=== PATIENT | female | born 1955 | race Caucasian/White ===

== ENCOUNTER → 2024-11-30 | Outpatient (CLI) | payer MEDICARE ==
--- NOTE | 2024-11-30 13:41 | XR ---
EXAMINATION TYPE: XR chest 2V DATE OF EXAM: 11/30/2024 1:31 PM COMPARISON: None. CLINICAL INDICATION: Female, 69 years old with history of Z01.818 PRE OP, TECHNIQUE: XR chest 2V view(s) obtained. FINDINGS: The heart size is normal. The pulmonary vasculature is normal. The lungs are clear. IMPRESSION: 1. No acute pulmonary process. [facility], , 11/30/2024 1:39 PM
[2024-11-30 13:45] LABS: INR 0.9 (<1.2); Partial Thromboplastin Time 23.8 sec (22.0-30.0); Prothrombin Time 9.8 sec (10.0-12.5)
[2024-11-30 15:41] LABS: Basophils # (A) 0.05 X 10*3/uL (0.00-0.10); Basophils % (A) 0.5 %; HCT 41.5 % (37.2-46.3); HGB 13.3 g/dL (12.0-15.0); Lymphocytes # (A) 2.81 X 10*3/uL (0.90-5.00); Lymphocytes % (A) 28.5 %; MCV 90.6 FL (80.0-97.0); Mean Platelet Volume 12.2 FL (9.5-12.2); Monocytes # (A) 0.66 X 10*3/uL (0.20-1.00); Monocytes % (A) 6.7 %; NRBC Per 100 WBC 0 X 10*3/uL (0.00-0.01); Neutrophils # (A) 6.19 X 10*3/uL (1.80-7.70); Neutrophils % (A) 62.8 %; Platelet Count 280 X 10*3/uL (140-440); RBC 4.58 X 10*6/uL (4.10-5.20); RDW 13.2 % (11.5-14.5); WBC 9.86 X 10*3/uL (4.50-10.00)
[2024-11-30 15:50] LABS: BUN/Creat Ratio 13.89 Ratio (12.00-20.00); Blood Urea Nitrogen 12.5 mg/dL (9.0-27.0); Chloride 102 mmol/L (96-109); Glucose 124 mg/dL (70-110); Potassium 4.6 mmol/L (3.5-5.5); Sodium 138 mmol/L (135-145)
[2024-11-30 15:51] LABS: Appearance,Urine Clear (Clear); Bilirubin,Urine Negative (Negative); Blood,Urine Trace (Negative); Calcium 9.3 mg/dL (8.7-10.3); Carbon Dioxide 24.1 mmol/L (21.6-31.8); Color,Urine Yellow (Yellow); Ketones,Urine Negative (Negative); Nitrite,Urine Negative (Negative); PH, Urine 6.5; Specific Gravity,Urine 1.011 (1.001-1.030)
[2024-11-30 15:58] LABS: Bacteria,Urine 3+ (None Seen)
== END | disposition home or self-care (01) ==
LOC: LABPAT 12:27
PROVIDERS: ATTEND Orthopaedic Surgery Orthopaedic Surgery of the Spine
DX: Z01.818 Encounter for other preprocedural examination (principal); M48.00 Spinal stenosis, site unspecified; E11.9 Type 2 diabetes mellitus without complications; M51.9 Unspecified thoracic, thoracolumbar and lumbosacral intervertebral disc disorder; Z22.322 Carrier or suspected carrier of Methicillin resistant Staphylococcus aureus
CPT/HCPCS: 71046; 80048; 81001; 83036; 85025; 85610; 85730; 86850; 86900; 86901; 87070

== ENCOUNTER 2024-12-05 06:22 | Day surgery (SDC) | payer MEDICARE ==
[2024-11-29 09:28] VITALS: BMI 35.4
[2024-12-05] MEDS: IV FLUID CONTINUATION 1,000 ML IV ONE (06:45)
[2024-12-05] MEDS ORDERED: MIDAZOLAM 2 MG/2 ML VIAL IV PRN (07:00)
[2024-12-05 07:22] LABS: Glucose,Whole Blood 134 mg/dL (70-110)
[2024-12-05] MEDS: DEXAMETHASONE SOD PHOSPHATE 4 MG/ML 1 ML VIAL IV ONE (07:25)
[2024-12-05] MEDS: ONDANSETRON 4 MG/2 ML VIAL IVP ONE (07:25)
[2024-12-05] MEDS: ceFAZolin 1,000 MG in SODIUM CHLORIDE 0.9% IRRIGATIO 1,000 ML IRRIGATION PRN (07:30)
[2024-12-05] MEDS: LIDOCAINE 0.5%-EPI 1:200,000 50 ML VIAL SQ ONE ×2 (07:48→07:56)
[2024-12-05] MEDS: BUPIVACAINE (PF) 0.5% 30 ML VIAL SQ ONE ×2 (07:49→07:56)
[2024-12-05] MEDS: methylPREDNISolone ACETATE 80 MG/ML 1 ML VIAL INJ ONE ×2 (07:49→08:34)
[2024-12-05] MEDS: THROMBIN (BOVINE) 5,000 UNIT VIAL TOPICAL ONE (07:56)
[2024-12-05] MEDS: LACTATED RINGERS 1,000 ML IV ONE (08:38)
[2024-12-05] MEDS ORDERED: HYDROmorphone 0.5 MG/0.5 ML SYRINGE IVP PRN (09:02)
[2024-12-05] MEDS ORDERED: BENZOCAINE/MENTHOL LOZENG 1 EACH LOZENGE MUCOUS MEM PRN (09:02)
[2024-12-05] MEDS ORDERED: ONDANSETRON 4 MG/2 ML VIAL IVP PRN (09:02)
[2024-12-05] MEDS ORDERED: HYDROmorphone 1 MG/ML 1 ML SYRINGE IVP PRN (09:02)
--- NOTE | 2024-12-05 09:12 | P.OP ---
Date of Procedure: 12/05/24 Preoperative Diagnosis: Herniated nucleus pulposus L5-S1, right lower extremity radiculopathy, stenosis L5-S1, degenerative disc disease Anesthesia: GETA Pathology: none sent Condition: stable Disposition: PACU Description of Procedure: BRIEF OPERATIVE NOTE Preoperative Diagnosis:Herniated nucleus pulposus L5-S1, right lower extremity radiculopathy, stenosis L5-S1, degenerative disc disease Postoperative Diagnosis:Herniated nucleus pulposus L5-S1, right lower extremity radiculopathy, stenosis L5-S1, degenerative disc disease Procedure: Laminectomy and decompression L5-S1 Discectomy for decompression L5-S1 Use of fluoroscopic guidance Surgeon: Dr. Olivas Sawmill Equipment Operator: Noah PADRON who is present throughout the entire the case persistence during positioning, dissection, exposure, visualization, and all crucial elements of the case as well as closure. Anesthesia: General anesthesia Estimated blood loss: Approximately 20 cc Complications: None apparent Components implanted: None Disposition: To recovery room in good stable condition. OPERATIVE INDICATIONS The patient has been having issues in their lower back and lower extremities. She was having severe pain at her right lower extremity and difficulty with any attempts of gaining comfort at her right leg. She had severe radicular symptoms which correlated with with an S1 distribution and her imaging showed a disc herniation with extruded fragment causing stenosis at L5-S1 which correlated well with her low back lower extremity symptoms. Her primary issues were that into her lower extremity and she was having significant debility with this. She had been through extensive conservative treatment including medications therapy and interventional pain management. Stenosis and impingement of the traversing nerve root which correlated well with her lower extremity symptoms. Her primary issues were that into her lower extremity. She has been through extensive conservative management including medications physical therapy and interventional pain management but despite this she was not having any significant or prolonged relief. The patient has been through conservative treatment. We discussed various treatment options including surgery, and the patient wishes to proceed with surgery We discussed the risk, patient's alternatives and benefits of surgery including but not limited to, risk of bleeding risk of infection, risk of need for further surgery, risk of decreased, loss of motion, loss of function, nerve damage, paralysis, heart attack, blindness and . OPERATIVE SUMMARY After discussing all the risks, patient alternatives and benefits at length, the patient elected to proceed with surgical intervention, signed informed consent, and presented for their procedure. The patient was seen and examined in the preoperative holding area and the surgical site was marked. The patient was given antibiotics and brought to the operating room. The patient was sedated and intubated by anesthesia in standard fashion. The patient was positioned on to the operating room table in a prone position on the appropriate frame which was well-padded and well molded. We were careful to pad any bony prominences and pressure points. We were careful to maintain the patient's cervical spine and good neutral alignment and position throughout. The patient was prepped and draped in a normal standard fashion. An appropriate timeout and keystone protocol performed. We were able to proceed with the surgery. Fluoroscopy was utilized to establish the appropriate level at L5-S1. The local wound area was infiltrated with local anesthetic. An incision was made at the midline longitudinally over the appropriate levels at L5-S1 extending from her prior incision site from previous surgery. Dissection was taken down subcutaneously to the level of the fascia which was split midline. Dissection was taken over the lamina. Intraoperative fluoroscopy was taken which showed a marker at the appropriate level at L5-S1. With the appropriate level positively confirmed, we were able to proceed with laminectomy. The wound was copiously irrigated and suctioned dry as had been done periodically throughout the case. I performed a laminectomy with a combination of curettes and a high-speed bur and Kerrison rongeurs. A small medial facetectomy was performed again further access. A partial foraminotomy was also performed. Portions of the ligamentum flavum were taken down to expose the dura and traversing nerve root. I was able to mobilize the traversing nerve root and gain access to the disc space. Note was made of obvious compression from the disc. Protecting the soft tissue structures, a small annulotomy was established. The disc itself had severe degenerative change and degeneration with significant loss of disc height. I was able to perform discectomy and remove any extruded disc fragments and any loose fragments from within the disc itself. There is some significant disc desiccation noted. I tried to preserve the disc annulus that appeared stable. There were no further extruded fragments noted. There is no evidence of dural tear or leak. Good hemostasis maintained. The wound was copiously irrigated and suctioned dry. Good decompression and discectomy was noted. We were able to proceed with closure. The fascia was closed for a watertight closure. The subcuticular tissue was closed with absorbable suture. The wound was cleaned and dried and dressed with the appropriate dressing. The drapes were broken down. The patient was gently rolled back onto their hospital bed being careful to maintain their cervical spine and good neutral alignment and position. They were woken up by anesthesia, extubated, and brought to the recovery room in good stable condition. The patient will be admitted to the hospital for observation and for appropriate postoperative care, medical management and monitoring. We will continue to follow them closely about the postoperative course.
[2024-12-05] MEDS: HYDROmorphone 0.5 MG/0.5 ML SYRINGE IVP PRN (09:31)
[2024-12-05] MEDS: LACTATED RINGERS 1,000 ML IV SCH (09:56)
--- NOTE | 2024-12-05 10:01 | FL ---
2 SEC FLUORO, DAP .7555 Gycm2, LUM ZAPATA DISCECTOMY L5-S1 [facility], , 12/05/2024 9:58 AM
[2024-12-05] MEDS: KETOROLAC 15 MG/ML 1 ML VIAL IVP PRN (10:29)
[2024-12-05] MEDS: SODIUM CHLORIDE 0.9% 1,000 ML IV SCH (11:24)
[2024-12-05 11:32] LABS: Glucose,Whole Blood 186 mg/dL (70-110)
[2024-12-05] MEDS: HYDROcodone/APAP 5-325MG 1 EACH TAB PO PRN (13:20)
[2024-12-05] MEDS: CYCLOBENZAPRINE 10 MG TAB PO PRN (13:21)
--- NOTE | 2024-12-05 14:01 | XR ---
2 SEC FLUORO, DAP .7555 Gycm2, LUM ZAPATA DISCECTOMY L5-S1 [facility], , 12/05/2024 1:59 PM
[2024-12-05 16:26] LABS: Glucose,Whole Blood 225 mg/dL (70-110)
[2024-12-05 21:34] LABS: Glucose,Whole Blood 206 mg/dL (70-110)
[2024-12-06 06:30] LABS: Glucose,Whole Blood 175 mg/dL (70-110)
--- NOTE | 2024-12-06 08:20 | P.DS ---
Providers Date of admission: 12/05/24 Attending physician: Kwame Olivas Primary care physician: Ngozi Madrigal Hospital Course: The patient presented on the day of admission as per their operative note. They herniated disc at L5-S1 with right lower extremity colopathy. She feels her right leg is already doing better. There is still some numbness tingling. She has been up and around and is comfortable with her pain control. She is voiding freely and tolerating her diet nicely. Physical Exam The incision site is clean dry and intact. There is no erythema no drainage. There is no purulence no evidence of infection. The intact she has sustained dorsiflexion plantarflexion EHL intact Abdomen soft and nontender. Chest has good excursion with deep inspiration and expiration. The patient has active and passive range of motion intact at the upper and lower extremities. There is no acute change in neurologic status. Hospital Course Postoperative day 1 status post laminectomy decompression with discectomy at L5- S1 for disc herniation with lower extreme radiculopathy and stenosis. the patient has been making good progress postoperatively. They have completed the prophylactic antibiotics without any signs or symptoms of infection. The patient has been able to advance their diet, and is tolerating diet adequately. The pain was initially controlled with IV medications and is now controlled appropriately with oral medications. The patient has been able to increase their mobilization. The patient has progressed appropriately. I think they are in good stable condition for discharge today. They will be sent home with appropriate pres criptions. I answered their questions to the best of my ability in a language that they can understand and they are agreeable with the plan. They will follow up as directed with me 2 weeks or sooner if she is having any problems. Patient Condition at Discharge: Good Plan - Discharge Summary Discharge Rx Participant: Yes New Discharge Prescriptions: New HYDROcodone/APAP 5-325MG [[place] 5-325] 1 tab PO Q4HR PRN 3 Days #18 tab PRN Reason: Pain No Action Metoprolol Succinate (ER) [Toprol Xl] 25 mg PO DAILY Celecoxib [CeleBREX] 100 mg PO DAILY Acetaminophen Tab [Tylenol] 650 mg PO Q4H PRN PRN Reason: Pain Discharge Medication List Acetaminophen Tab [Tylenol] 650 mg PO Q4H PRN 11/29/24 [History] Celecoxib [CeleBREX] 100 mg PO DAILY 11/29/24 [History] Metoprolol Succinate (ER) [Toprol Xl] 25 mg PO DAILY 11/29/24 [History] HYDROcodone/APAP 5-325MG [[place] 5-325] 1 tab PO Q4HR PRN 3 Days #18 tab 12/05/24 [Rx] Follow up Appointment(s)/Referral(s): Kwame Olivas, [Doctor of Osteopathic Medicine] - 12/18/24 10:25 am Activity/Diet/Wound Care/Special Instructions: Keep site clean. May shower with waterproof Tegaderm intact. Do not soak in a tub. After 72 hours postoperatively, patient May remove dressing and then may shower with area uncovered. Leave glue intact and allow it to fray off on its own. May ambulate as tolerated. Avoid heavy or rigorous activity. No repetitive bending twisting or lifting. No overhead work. Discharge Disposition: HOME SELF-CARE
[2024-12-06] MEDS: MELOXICAM 7.5 MG TAB PO SCH (09:22)
[2024-12-06] MEDS: METOPROLOL SUCCINATE (ER) 25 MG TAB.ER.24H PO SCH (09:27)
[2024-12-06 11:13] LABS: Glucose,Whole Blood 163 mg/dL (70-110)
[2024-12-06 14:46] VITALS: BP 139/75; PULSE 62; RESP 16; TEMP 98
== END 2024-12-06 15:02 | disposition home or self-care (01) ==
LOC: OR 06:22 → 4SSUR 09:32 → OR 12-06 15:02
PROVIDERS: ATTEND Orthopaedic Surgery Orthopaedic Surgery of the Spine
DX: M51.17 Intervertebral disc disorders with radiculopathy, lumbosacral region (principal); M48.07 Spinal stenosis, lumbosacral region; M48.062 Spinal stenosis, lumbar region with neurogenic claudication; M47.26 Other spondylosis with radiculopathy, lumbar region; M51.362 Other intervertebral disc degeneration, lumbar region with discogenic back pain and lower extremity pain; I47.10 Supraventricular tachycardia, unspecified; I10 Essential (primary) hypertension; E11.9 Type 2 diabetes mellitus without complications; E78.2 Mixed hyperlipidemia; G47.33 Obstructive sleep apnea (adult) (pediatric); J84.9 Interstitial pulmonary disease, unspecified; I45.10 Unspecified right bundle-branch block; E66.9 Obesity, unspecified; Z68.35 Body mass index [BMI] 35.0-35.9, adult; Z79.1 Long term (current) use of non-steroidal anti-inflammatories (NSAID); Z79.899 Other long term (current) drug therapy; Z98.890 Other specified postprocedural states
CPT/HCPCS: 72100; 63030; J1100; J0690 ×2; J2405; J1885; J1171; J0665; J1010